=== PATIENT | male | born 2000 | race Caucasian/White ===

== ENCOUNTER 2024-11-09 16:22 | Emergency (ER) | payer BC ==
[~2024-11-09] VITALS: Ht 180.3 cm; Wt 76.2 kg
[~2024-11-09 16:22] MED LIST changes: -TAMS.4ER PO
[2024-11-09 17:10] LABS: BASOPHILS ABSOLUTE AUTO 0.09 K/mm3 (0.00-0.23); BASOPHILS PERCENT AUTO 1 % (0-2); EOSINOPHILS ABSOLUTE AUTO 0.59 K/mm3 (0.00-0.68); EOSINOPHILS PERCENT AUTO 7 % (0-6); Hematocrit 43.8 % (37.0-53.0); Hemoglobin 15.2 g/dL (13.5-17.5); IMMATURE GRAN ABSOLUTE AUTO 0.02 K/mm3 (0.00-0.10); IMMATURE GRAN PERCENT AUTO 0 % (0-1); LYMPHOCYTES ABSOLUTE AUTO 2.45 K/mm3 (0.84-5.20); LYMPHOCYTES PERCENT AUTO 28 % (21-46); MONOCYTES ABSOLUTE AUTO 0.61 K/mm3 (0.16-1.47); MONOCYTES PERCENT AUTO 7 % (4-13); Mean Corpuscular HGB Conc 34.7 g/dL (31.5-36.5); Mean Corpuscular Volume 87 fL (80-100); NEUTROPHILS ABSOLUTE AUTO 5.06 K/mm3 (1.96-9.15); NEUTROPHILS PERCENT AUTO 57 % (41-73); NRBC ABSOLUTE 0.00 K/mm3 (0.00-0.02); NRBC Auto 0.0 /100 WBC (0.0-0.2); Platelet Count 229 K/mm3 (150-400); RDW Coefficient Variation 11.5 % (11.7-14.2); RDW Standard Deviation 37.0 fL (35.1-46.3)
[2024-11-09 17:31] LABS: Alanine Aminotransfer (ALT/SGP 46.0 U/L (12-78); Albumin, Blood 4.1 g/dL (3.4-5.0); Albumin/Globulin Ratio 1.2 (0.8-1.8); Anion Gap 7.0 mmol/L (3-11); Aspartate Aminotrans (AST/SGOT 26.0 U/L (12-37); Bilirubin, Total 1.0 mg/dL (0.1-1.0); Blood Urea Nitrogen 17.0 mg/dL (8-24); CO2, Blood 25.0 mmol/L (21-32); Calcium, Blood 9.0 mg/dL (8.5-10.1); Chloride, Blood 109.0 mmol/L (98-108); Creatinine, Blood 0.85 mg/dL (0.60-1.20); Globulin, Blood 3.4 g/dL (2.2-4.0); Glucose, Blood 105.0 mg/dL (70-99); Potassium, Blood 3.6 mmol/L (3.5-5.5); Sodium, Blood 137.0 mmol/L (136-145); Total Protein, Blood 7.5 g/dL (6.4-8.2)
[2024-11-09 18:04] LABS: Source, Urine Clean Catch
[2024-11-09 18:08] VITALS: BP 142/87
[2024-11-09 18:09] LABS: Bilirubin, Urine Neg (Neg); Color, Urine Yellow (P-Yellow); Glucose Qualitative, Urine Neg (Neg); Ketones, Urine Neg (Neg); Leukocyte Esterase, Urine Neg (Neg); Protein, Urine 1+ (Neg); Specific Gravity, Urine 1.020 (1.003-1.022); Urobilinogen, Urine NORM (Normal)
[2024-11-09 18:42] LABS: White Blood Cells, Urine 0-2 /hpf (0-5)
[2024-11-09] MEDS ORDERED: TAMS.4ER PO (19:30)
== END 2024-11-09 19:42 | disposition home or self-care (01) ==
LOC: ER 16:22
PROVIDERS: Student in an Organized Health Care Education/Training Program
DX: N20.0 Calculus of kidney (principal)
CPT/HCPCS: 74176; 80053; 81001; 85025; 99284-25; A9270

== ENCOUNTER → 2024-11-09 | Outpatient (CLI) | payer BC ==
[~2024-11-09] MED LIST: Amoxicillin500 MG PO; TAMS.4ER PO
[2024-11-09 18:12] LABS: Source, Urine Clean Catch
== END ==
LOC: LAB SHORT 09:31 → LAB 09:31
PROVIDERS: Physician Assistant
DX: R31.9 Hematuria, unspecified (principal)
CPT/HCPCS: 81015; 87086